=== PATIENT | male | born 1990 | race Caucasian/White ===

== ENCOUNTER 2017-06-19 00:35 | Emergency (ER) | payer OTHER ==
[~2017-06-19] VITALS: Ht 167.6 cm; Wt 67.5 kg
[~2017-06-19 00:35] MED LIST: ALBUTEROL SULF8.5 GM IH; MOTRIN800 MG PO; PREDNISONE10 M1 PO; ZITHROMAX Z-PA250 MG PO
[2017-06-19 01:27] LABS: HEMATOCRIT 45.6 % (38.0-50.0); MCH 31.4 PG (29.0-34.0); MCHC 33.8 G/DL (30.0-36.0); MCV 93.1 FL (86-99); MEAN PLAT.VOLUME 10.2 uM^3 (9.0-12.4); PLATELET COUNT 288 K/uL (156-360); RBC DIS.WIDTH-CV 12.1 % (11.8-14.6); RBC DIS.WIDTH-SD 41.8 % (39-53); WHITE BLOOD COUNT 7.2 K/uL (4.1-10.2)
[2017-06-19 01:43] LABS: CHLORIDE 100 mEq/L (99-109); POTASSIUM 3.3 mEq/L (3.7-5.4); SODIUM 136 mEq/L (136-147)
[2017-06-19 01:45] LABS: GLUCOSE 87 mg/dL (70-99)
[2017-06-19 01:46] LABS: ANION GAP 11 MEQ/L (2-14)
[2017-06-19 01:47] LABS: TOTAL BILIRUBIN 0.5 mg/dL (0.0-1.0)
[2017-06-19 01:48] LABS: ALKALINE PHOSPHATASE 61 IU/L (3-129)
[2017-06-19 01:49] LABS: GFR ESTIMATE (CALCULATED) > 59 mL/min/
[2017-06-19 01:50] LABS: UREA NITROGEN (BUN) 11 mg/dL (9-23)
[2017-06-19 01:52] LABS: LIPASE 29 U/L (1.0-51.0)
[2017-06-19] MEDS ORDERED: BENTYL20 MG PO (04:29)
[2017-06-19] MEDS ORDERED: ZOFRAN8 MG PO (04:29)
[2017-06-19 04:40] VITALS: BP 113/62
== END 2017-06-19 04:45 | disposition home or self-care (01) ==
LOC: EME 00:35
DX: R10.84 Generalized abdominal pain (principal); R11.2 Nausea with vomiting, unspecified; R42 Dizziness and giddiness; E87.6 Hypokalemia; Z87.442 Personal history of urinary calculi; F17.200 Nicotine dependence, unspecified, uncomplicated
CPT/HCPCS: 80053; 81003; 83690; 85027; 99281; 99284